=== PATIENT | male | born 1990 | race African-American/Black ===

== ENCOUNTER 2018-10-23 15:19 | Emergency (ER) | payer MEDICAID ==
[~2018-10-23] VITALS: Ht 182.9 cm; Wt 65.8 kg
[2018-10-23 15:39] VITALS: BP 113/88
--- NOTE | 2018-10-23 15:49 | NUR ---
ED Nurse Note: Pt came in due to right hand laceration after punching a glass window 2 days ago. Noted about 1cm laceration in beween right ring finger and pinky finger. No active bleeding. AAO x4 and ambulatory.
[2018-10-23] MEDS ORDERED: Neosporin Oint Ud Pkt TOPIC ONE (16:00)
--- NOTE | 2018-10-23 16:07 | Emergency Room Report ---
History of Present Illness General Chief Complaint: Upper Extremity Injury Source: Patient Present Illness HPI 27-year-old male with no significant past medical history here complaining of pain and swelling in the left hand x2 days as well as a healing laceration on the right hand. Patient reports that he punched a glass door with both of his hands 2 days ago laceration was from the right hand however is already closing. Rating the pain 10 out of 10 without radiation. Denies tingling numbness. Denies all other injuries. Has not taken medication for symptom relief. Denies chest pain, shortness of breath, no other associated symptoms. Allergies: Coded Allergies: No Known Allergies (Unverified , 10/23/18) Patient History Past Medical History: see triage record Past Surgical History: unable to obtain Pertinent Family History: none Immunizations: UTD Reviewed Nursing Documentation: PMH: Agreed; PSxH: Agreed Nursing Documentation-PMH Past Medical History: No Stated History Review of Systems All Other Systems: negative except mentioned in HPI Physical Exam Vital Signs Date Time Temp Pulse Resp B/P (MAP) Pulse Ox O2 Delivery O2 Flow Rate FiO2 10/23/18 15:39 97.9 62 19 113/88 (96) 98 Room Air Sp02 EP Interpretation: reviewed, normal General Appearance: no apparent distress, alert, GCS 15, non-toxic Head: normocephalic, atraumatic Eyes: bilateral eye normal inspection, bilateral eye PERRL ENT: hearing grossly normal, normal pharynx, no angioedema, normal voice Neck: full range of motion, supple/symm/no masses Respiratory: chest non-tender, lungs clear, normal breath sounds, speaking full sentences Cardiovascular #1: regular rate, rhythm, no edema, no murmur Cardiovascular #2: 2+ radial (R), 2+ radial (L) Gastrointestinal: normal bowel sounds, non tender, soft, non-distended, no guarding, no rebound Genitourinary: no CVA tenderness Musculoskeletal: back normal, digits/nails normal, gait/station normal, normal range of motion, tender - left fifth metacarpal Neurologic: normal inspection, alert Psychiatric: normal inspection, judgement/insight normal Skin: laceration - healing lac right hand Lymphatic: no adenopathy Procedures Splinting Splinting : Consent: Verbal Location: left hand Hand-Made Type: plaster Splint: ulnar Pre-Proc Neuro Vasc Exam: normal Post-Proc Neuro Vasc Exam: normal Patient Tolerated: Well Complications: None Medical Decision Making PA Attestation Diagnosis and treatment plans were reviewed and discussed with my supervising physician Dr. Saenz Diagnostic Impression: Primary Impression: Cellulitis of hand Additional Impression: Boxer's fracture ER Course 27-year-old male with no significant past medical history here complaining of pain and swelling in the left hand x2 days as well as a healing laceration on the right hand. Patient reports that he punched a glass door with both of his hands 2 days ago laceration was from the right hand however is already closing. Rating the pain 10 out of 10 without radiation. Denies tingling numbness. Denies all other injuries. Has not taken medication for symptom relief. Denies chest pain, shortness of breath, no other associated symptoms. Ddx considered but are not limited to : Hand fracture, and sprain, hand strain, laceration, cellulitis, abrasion Vital signs: are WNL, pt. is afebrile H&PE are most consistent with: Healing laceration cellulitis of hand, boxer's fracture left hand ORDERS: Bilateral hand x-ray, ibuprofen, Bactrim DS ED INTERVENTIONS: Splinting of left hand DISCHARGE: At this time pt. is stable for d/c to home. Will provide printed patient care instructions, and any necessary prescriptions. Care plan and follow up instructions have been discussed with the patient prior to discharge. Take medication as directed follow-up with primary care provider and operator specialist communications Other X-Ray Diagnostic Results Other X-Ray Diagnostic Results #1: X-Ray ordered: Left hand # of Views/Limited Vs Complete: 2 View Indication: Swelling EP Interpretation: Yes PA Xray: Interpretation reviewed, by supervising MD, and agrees with findings. Interpretation: no dislocation, other - Fracture of left fifth metatarsal carpal Impression: Other - Fracture of left fifth metacarpal Electronically Signed by: Meghana Watkins PA-C Other X-Ray Diagnostic Results #2: X-Ray ordered: Right hand # of Views/Limited Vs Complete: 2 View Indication: Pain EP Interpretation: Yes PA Xray: Interpretation reviewed, by supervising MD, and agrees with findings. Interpretation: no dislocation, no soft tissue swelling, no fractures Impression: No acute disease Electronically Signed by: Meghana Watkins PA-C Last Vital Signs Date Time Temp Pulse Resp B/P (MAP) Pulse Ox O2 Delivery O2 Flow Rate FiO2 10/23/18 15:39 97.9 62 19 113/88 98 Room Air Disposition: HOME, SELF-CARE Condition: Stable Scripts Ibuprofen (Ibu) 800 Mg Tablet 800 MG PO BID, #20 TAB Prov: Meghana Serrano 10/23/18 Sulfamethoxazole/Trimethoprim (BACTRIM 400-80 MG TABLET*) 1 Each Tablet 1 TAB ORAL TWICE A DAY for 7 Days, #14 TAB Prov: Meghana Serrano 10/23/18 Patient Instructions: Boxer's Fracture, Cellulitis, [id number] Additional Instructions: , Laceration is already healing and cannot be sutured anymore due to waiting for 48 hours. However you need to take your antibiotics follow-up with your primary care provider. Referral to operator specialist communications as needed keep the immobilizer on until seen by operator specialist communications Meghana Serrano Oct 23, 2018 16:07
[2018-10-23] MEDS ORDERED: BACTRIM 400-801 EACH ORAL (16:08)
[2018-10-23] MEDS ORDERED: IBU800 MG PO (16:08)
[2018-10-23 16:30] VITALS: BP 127/82
--- NOTE | 2018-10-23 16:30 | NUR ---
ER DISCHARGE NOTE: Patient is cleared to be discharged per PA, pt is aox4, on room air, with stable vital signs. pt was given dc and prescription instructions, pt was able to verbalize understanding, pt id band removed. pt is able to ambulate with steady gait. pt took all belongings.
--- NOTE | 2018-10-24 11:03 | Diagnostic Imaging Report ---
Indication: left hand pain. Comparison: None Findings: 2 views of the left hand were obtained. There is an acute nondisplaced fracture of the distal fifth metacarpal bone. Soft tissue swelling noted. IMPRESSION: Acute fracture of the fifth metacarpal
--- NOTE | 2018-10-24 11:03 | Diagnostic Imaging Report ---
Indication: Hand injury pain Findings: 2 views of the right hand were obtained. Normal bony mineralization and alignment are demonstrated. No acute fractures, erosions, or periosteal reaction are seen. Soft tissues are unremarkable. Impression: No acute findings.
== END 2018-10-23 16:30 | disposition home or self-care (01) ==
LOC: EMR 16:00
DX: L03.90 Cellulitis, unspecified (principal); S92.352A Displaced fracture of fifth metatarsal bone, left foot, initial encounter for closed fracture; W25.XXXA Contact with sharp glass, initial encounter; Y92.9 Unspecified place or not applicable
CPT/HCPCS: 29125; 73120; Z7502; 99284